=== PATIENT | male | born 1975 | race Caucasian/White ===

== ENCOUNTER 2020-11-12 09:22 | Day surgery (SDC) | payer MEDICAID, SELFPAY ==
[~2020-11-12] VITALS: Ht 167.6 cm; Wt 72.6 kg
[2020-11-12] MEDS ORDERED: SIMETHICONE 40 MG/0.6 ML ML ONE (10:27)
[2020-11-12] MEDS: MIDAZOLAM HCL 5 MG/5 ML VIAL ONE ×4 (10:32→10:38)
[2020-11-12] MEDS: fentaNYL CITRATE/PF 100 MCG/2 ML AMP ONE ×3 (10:33→10:37)
[2020-11-12 13:55] VITALS: BP_SYST 125
== END 2020-11-12 11:45 | disposition home or self-care (01) ==
LOC: SDS 09:22 → SMU 09:22 → SDS 11:45
PROVIDERS: ATTEND Internal Medicine
DX: R10.31 Right lower quadrant pain (principal); C18.1 Malignant neoplasm of appendix; Z79.899 Other long term (current) drug therapy; Z20.822 Contact with and (suspected) exposure to COVID-19
CPT/HCPCS: 45380; 88305; 99152; G0378; J2250; J3010; J7030; U0003; U0005; 88304